=== PATIENT | male | born 1950 | race Caucasian/White ===

== ENCOUNTER 2020-12-13 08:48 | Outpatient (CLI) | payer MEDICARE | END 2020-12-13 08:49 | disposition home or self-care (01) | LOC: BURRAD 08:48 | PROVIDERS: ATTEND Internal Medicine Cardiovascular Disease | DX: I48.0 Paroxysmal atrial fibrillation (principal); Z79.899 Other long term (current) drug therapy | CPT/HCPCS: 71046 ==

== ENCOUNTER 2025-09-05 11:11 | Outpatient (CLI) | payer MEDICARE | END 2025-09-05 11:12 | disposition home or self-care (01) | LOC: BURRAD 11:11 | PROVIDERS: ATTEND Family Medicine | DX: M25.532 Pain in left wrist (principal); M25.512 Pain in left shoulder; M79.642 Pain in left hand; M19.012 Primary osteoarthritis, left shoulder; M75.32 Calcific tendinitis of left shoulder ==